=== PATIENT | female | born 1940 | race Caucasian/White ===

== ENCOUNTER 2024-07-17 00:06 | Emergency (ER) | payer OTHER, SELFPAY ==
[2024-07-17 00:22] VITALS: BP 150/86
[2024-07-17 01:31] VITALS: BMI 32.3
[2024-07-17 01:32] VITALS: BP 164/80
--- NOTE | 2024-07-17 02:19 | ED.GENMED ---
History of Present Illness
General
Chief Complaint: Blood Pressure Problem
Source: patient and spouse
Exam Limitations: none
Time Seen by Provider: 07/17/24 01:30
Nursing documentation reviewed up to this point in time: agreed with
History of Present Illness
History of Present Illness:
This is an 84-year-old woman with history of hypertension, hyperlipidemia, irritable bowel syndrome, hypothyroidism, benign essential tremor. She states her blood pressure has been elevated over the past few weeks, she is maintained on lisinopril
20 mg twice daily. She became concerned tonight when she developed a nosebleed from left nostril at 8 PM, stopped with local pressure and then recurred at 11 PM. Again stopped with local pressure.
She denies headache, denies dizziness nor lightheadedness, no sore throat, no ear pain nor nasal congestion. She does admit to chronic clear rhinorrhea and was recently started on a nasal spray that she takes twice daily for chronic rhinorrhea. I
suspect this is Atrovent nasal spray.
She takes no anticoagulants.
She states her blood pressure tonight is 157/100. She took her usual 20 mg of lisinopril this evening.
Past History
Past History
ED Past Medical History: HTN, Hypercholesterolemia and Other (hypothyroid; synthroid, irritable bowel syndrome, glaucoma, neuropathy, essential tremor)
ED Past Surgical History: Gynecological, Orthopedic and Tonsilectomy
Social History
Tobacco: Non-smoker
Alcohol: None
Drug: None
Personal:
Living: with family
Employment: Retired
Family History
Family History: Other (Noncontributory)
Phy Exam
Physical Exam
Physical Exam:
GENERAL: 84-year-old woman appears her stated age, awake and alert, pleasant, appears in no acute distress. Easily communicative. Her is accompanying.
EYE: pupils equal and reactive. anicteric
NECK: Supple, nontender, no meningismus, no significant adenopathy.
ENT: posterior pharynx has scant dark clots posteriorly but no active bleeding noted, oral mucosa is moist. TM clear b/l, there is a pinpoint area of erythema left anterior septum as well as minimal erythema noted anterior aspect of the inferior
turbinate on the left. There is no active bleeding. No clots within the nasal cavity. Right nostril is clear.
CARDIAC: Regular rate and rhythm. no murmur.
LUNGS: Clear breath sounds bilaterally, no acute respiratory distress, no wheezes/rales/rhonchi
ABDOMEN: Soft, nondistended, without focal tenderness
NEUROLOGICAL: Alert and oriented x3, no focal neuro deficits. Mild tremor of head.
SKIN: Warm and dry, normal color, skin intact. No rash.
MUSCULOSKELETAL: No C/C/E. peripheral pulses are full and equal b/l. No palpable tenderness.
PSYCH: Normal and appropriate interaction.
Course
Vital Signs
Initial and Last Documented VS:
Initial Vital Signs
Temp Pulse Resp BP Pulse Ox
98.3 F 86 18 150/86 96
07/17/24 00:22 07/17/24 00:22 07/17/24 00:22 07/17/24 00:22 07/17/24 00:22
Last Documented Vital Signs
Temp Pulse Resp BP Pulse Ox
98.3 F 77 16 164/80 98
07/17/24 00:22 07/17/24 01:32 07/17/24 01:32 07/17/24 01:32 07/17/24 01:32
Procedures
Nosebleed
Drug treatment: Lidocaine and Epinephrine
Treatment: Silver nitrate cautery
Post treatment bleeding: none- good control
Additional information:
Silver nitrate cautery to pinpoint area of erythema anterior septum on the left as well as cautery to anterior aspect of the anterior turbinate.
*Pulse Oximetry
Patient hypoxic: no
*Critical Care Note
Total Time (30-74mins, 75-104mins- exclusive of procedures): Not Applicable
Update Note
Update Note:
No recurrent bleeding since arrival to the ED.
Pinpoint area of erythema left anterior septum as well as small area of erythema anterior aspect of the inferior turbinate. Both areas cauterized with silver nitrate.
Patient is noted to have mild systolic hypertension, 1 50-1 60. Has had issues with hypertension for quite some time. I do not suspect hypertension as cause for epistaxis and instead I suspect related to recent initiation of nasal spray for
chronic rhinitis.
Recommend she discontinue that nasal spray and after 3 days recommend initiation of saline nasal spray.
Nosebleed precautions discussed.
Recommend follow-up with PCP regarding hypertension and follow-up with her primary ENT specialist Dr. Prather.
ED Attending Note
-
Portions of this chart may have been created with voice recognition software.� Occasional wrong word or��sound alike� substitutions may have occurred due to the inherent limitations of voice recognition software.
Discharge Plan
Departure
Patient Disposition: Home (Routine Discharge)
Date of Disposition: 07/17/24
Time of Disposition: 02:26
Patient with high blood pressure during this ER visit?: No
Discharge Problem:
Acute anterior epistaxis
Instructions: Nosebleeds ED
Prescriptions:
No Action
ciprofloxacin HCl 500 MG tablet
500 mg PO BID Qty: 14 0RF
Referrals:
Wilian Prather MD [Active] - Call in 1-3 days for appt
Meliton Singh DO [Non-Admitting Privileges] - Call in 1-3 days for appt
Activity Restrictions/Additional Instructions:
Over the next 3 days, no blowing, no sniffing, no picking your nose. There after I want you to start saline nasal spray such as [place] Walk nasal spray or [place] nasal spray. 2 sprays each nostril 2-3 times per day.
Follow-up with your primary care physician for recheck of blood pressure and follow-up with Dr. Prather regarding nosebleeds.
Interventions
Interventions:
*Risk Screen - Suicide Last Done: 07/17/24 00:22
*General Assessment Last Done: 07/17/24 01:31
*Neglect/Abuse Screening Last Done: 07/17/24 01:31
ED- Fall Risk Assessment Last Done: 07/17/24 02:35
*ED COVID-19 Vaccine History Last Done: 07/17/24 00:22
*Nursing Disposition Last Done: 07/17/24 02:35
ED- Cardiac Assessment Last Done: 07/17/24 01:31
ED- Neurological Assessment Last Done: 07/17/24 01:31
ED- Pulmonary Assessment Last Done: 07/17/24 01:31
Discharge Date and Time
Discharge Date/Time: 07/17/24 02:37
Print Language: BULGARIAN
== END 2024-07-17 02:37 | disposition home or self-care (01) ==
LOC: EMR 00:06
PROVIDERS: EMERGENCY PHYSICIAN Emergency Medicine; FAMILY PHYSICIAN Family Medicine
DX: R04.0 Epistaxis (principal); I10 Essential (primary) hypertension; E78.00 Pure hypercholesterolemia, unspecified; E03.9 Hypothyroidism, unspecified; Z79.899 Other long term (current) drug therapy
CPT/HCPCS: 30901; 99282

== ENCOUNTER → 2024-08-31 16:09 | Outpatient (REF) | payer OTHER, SELFPAY | LOC: MRI 3T 16:09 | PROVIDERS: ATTENDING PHYSICIAN Internal Medicine; FAMILY PHYSICIAN Family Medicine | DX: M54.16 Radiculopathy, lumbar region (principal) | CPT/HCPCS: 72148 ==

== ENCOUNTER → 2024-10-12 14:57 | Outpatient (REF) | payer OTHER, SELFPAY | LOC: HWRAD 14:57 | PROVIDERS: ATTENDING PHYSICIAN Physical Medicine & Rehabilitation; FAMILY PHYSICIAN Family Medicine | DX: M25.551 Pain in right hip (principal) | CPT/HCPCS: 73502 ==

== ENCOUNTER → 2025-06-30 13:53 | Outpatient (REF) | payer OTHER, SELFPAY | LOC: RAD 13:53 | PROVIDERS: ATTENDING PHYSICIAN Family Medicine | DX: M79.604 Pain in right leg (principal); M79.605 Pain in left leg | CPT/HCPCS: 93922; 93925 ==